=== PATIENT | male | born 1955 | race Caucasian/White ===

== ENCOUNTER → 2024-08-17 | Outpatient (CLI) | payer MEDICARE, BC, SELFPAY ==
--- NOTE | 2024-08-17 09:09 | EKG_ITS ---
[facility] Test Date: 2024-08-17 Pat Name: PRIYANKA SPEARS Department: Room: - Gender: Male [employer]: EV[place]ETT : 1955 Requested By: Darren Miller Order Number: [id number] Reading MD: Darren Miller Measurements Intervals [place] Rate: 69 P: [place]: QRS: -34 QRSD: 88 T: 71 QT: 404 QTc: 435 Interpretive Statements SINUS RHYTHM WITH HIGH GRADE AV BLOCK MARKED LEFT AXIS DEVIATION MODERATE ST DEPRESSION Compared to ECG 08/19/2019 13:49:46 Left-axis deviation now present ST (T wave) deviation now present Atrial fibrillation no longer present T-wave abnormality no longer present Possible ischemia no longer present /store/[id number].pdf
== END | disposition home or self-care (01) ==
PROVIDERS: PCP Family Medicine; Referring Provider Orthopaedic Surgery; Visit Provider Orthopaedic Surgery
DX: Z01.818 Encounter for other preprocedural examination (principal); M51.16 Intervertebral disc disorders with radiculopathy, lumbar region
CPT/HCPCS: 93005

== ENCOUNTER → 2024-11-23 | Outpatient (CLI) | payer MEDICARE, BC, SELFPAY ==
[2024-11-23 09:56] LABS: Prostate Specific Antigen 1.37 ng/mL (0-4.00)
[2024-11-29 06:49] LABS: Testosterone, Free,Dialysis 67.6 pg/mL (35.0-155.0); Testosterone, Total, Dialysis 416 ng/dL (250-1100)
== END | disposition home or self-care (01) ==
LOC: COPL 08:16
PROVIDERS: PCP Family Medicine; Referring Provider Surgery; Visit Provider Surgery
DX: N40.1 Benign prostatic hyperplasia with lower urinary tract symptoms (principal); N52.9 Male erectile dysfunction, unspecified
CPT/HCPCS: 36415; 84153; 84402; 84403